=== PATIENT | female | born 1995 | race Hispanic/Latino ===

== ENCOUNTER 2019-05-14 09:37 | Day surgery (SDC) | payer BC, OTHER ==
[2019-05-14 10:14] VITALS: BMI 40.4
[2019-05-14 10:17] VITALS: BP 133/88; TEMP 97.9
[2019-05-14] MEDS ORDERED: hydrALAZINE 20 MG/ML VIAL SLOW IVP PRN (10:33)
[2019-05-14] MEDS ORDERED: Lactated Ringer's 1,000 ML IV SCH ×2 (10:45)
[2019-05-14 11:04] LABS: Amnisure Test No Membranes Rupture (No Rupture)
[2019-05-14 11:05] LABS: Amnisure Internal Control QC ACCEPTABLE (ACCEPTABLE)
[2019-05-14 11:15] LABS: #Lymphocytes 1.6 thou/uL (1.20-3.40); #Monocytes 0.5 thou/uL (0.11-0.59); #Neutrophils 5.5 thou/uL (1.40-6.50); %Basophils 0.2 % (0.0-1.0); %Eosinophils 0.6 % (0.0-10.0); %Lymphocytes 20.9 % (21.0-51.0); %Monocytes 6.5 % (0.0-10.0); %Neutrophils 71.8 % (42.0-75.0); Hemoglobin 10.6 g/dL (12.0-16.0); Mean Corpuscular HGB CONC 33.9 g/dL (32.0-36.0); Mean Corpuscular Hemoglobin 26.2 pg (27.0-31.0); Mean Corpuscular Volume 77.3 fL (78.0-98.0); Mean Platelet Volume 7.9 fL (7.4-10.4); Platelet Count 293 thou/uL (130-400); RBC Distribution Width 15.1 % (11.5-14.5); Red Blood Cell (RBC) Count 4.02 mill/uL (4.20-5.40); White Blood Cell (WBC) Count 7.6 thou/uL (4.8-10.8)
[2019-05-14 11:21] LABS: Bacteria/HPF 3+ HPF (None Seen); Bilirubin Negative (Negative); Blood, Urine Negative (Negative); Clarity Turbid (Clear); Glucose, Urine (Dipstick) Normal (Negative); Leukocyte Negative Leu/uL (Negative); Nitrite Negative (Negative); Protein, Urine (Dipstick) 20 mg/dL (Neg-Trace); RBC/HPF 0-3 HPF (0-3); Squamous Epithelial 21-50 HPF (0-3); Urobilinogen Normal mg/dL (Less than 2)
[2019-05-14 11:34] LABS: ALT (SGPT) 10 U/L (8-55); AST (SGOT) 11 U/L (5-34); Albumin 3.2 g/dL (3.5-5.0); Alkaline Phosphatase 190 U/L (40-110); Anion Gap 12 mmol/L (10-20); BUN (Urea Nitrogen) 4 mg/dL (7.0-18.7); Bilirubin, Total 0.4 mg/dL (0.2-1.2); Calc. Creatinine Clearance 212 mL/min (70-130); Calcium 8.4 mg/dL (7.8-10.44); Carbon Dioxide 20 mmol/L (22-29); Chloride 107 mmol/L (98-107); Estimated GFR-MDRD Greater than 90; Globulin 3.2 g/dL (2.4-3.5); Glucose 73 mg/dL (70-105); Protein, Total 6.4 g/dL (6.0-8.3); Sodium 135 mmol/L (136-145)
--- NOTE | 2019-05-14 12:29 | ULT ---
EXAM: US Biophysical Profile PROVIDED CLINICAL HISTORY: 35 week intrauterine . Decreased movement. COMPARISON: None FINDINGS: There is evidence of a single intrauterine gestation in cephalic presentation. Cardiac Doppler demons trates heart tones with a heart rate of 153 bpm. The placenta is located posteriorly and on the right. There is no evidence of placenta previa as the head is in the lower uterine s egment. However, a low-lying placenta is unable to be determined due to shadowing from the adjacent head and difficulty visualizing the leading edge of the placenta. There is a normal amount of amniotic fluid with an amniotic fluid index of 12.7 cm. A score of 2 was obtained each for tone, breathing, movements, an amniotic fluid vo lume. IMPRESSION: 1. The leading edge of the placenta in relation to the cervical os is unable to be visualized to eval uate for low-lying placenta. However, images do not demonstrate evidence of placenta previa as the head is in the lower uterine segment. 2. Single intrauterine gestation cephalic presentation with heart tones documented. 3. Amniotic fluid index of 12.7 cm. 4. A total biophysical profile score of 8 out of 8 is obtained.
--- NOTE | 2019-05-14 17:01 | SS ---
DATE OF ADMISSION: 05/14/2019 DATE OF DISCHARGE: 05/14/2019 REGULAR PHYSICIAN: Matty Moctezuma MD EVALUATING PHYSICIAN: Zhao Marinelli MD CHIEF COMPLAINT: Decreased movement, possible loss of fluid, nausea, and vomiting. HISTORY OF PRESENT ILLNESS: Ms. Shipman is a 23-year-old G2, P1, with an estimated date of confinement of 06/18/2019, who presents with multiple complaints today including decreased movement over the last 24 hours, possible leakage of fluid since this morning, lower abdominal discomfort and nausea and vomiting with three episodes of emesis since early this morning. She also states that she has had some blurry vision. Her care has been with Dr. Moctezuma and has been reportedly uncomplicated. PAST OBSTETRICAL HISTORY: Includes one section at term for what she describes as distress done by Dr. Moctezuma at [facility]. PAST MEDICAL HISTORY: None. PAST SURGICAL HISTORY: as above. CURRENT MEDICATIONS: She denies taking vitamins. ALLERGIES: NO KNOWN ALLERGIES. SOCIAL HISTORY: Denies tobacco, alcohol, or drug use. FAMILY HISTORY: Unremarkable. REVIEW OF SYSTEMS: Positive for nausea and vomiting. Positive for visual symptoms. PHYSICAL EXAMINATION: VITAL SIGNS: Blood pressure in triage shows all blood pressure is in the nonsevere range. Last blood pressure is 120/70s. GENERAL: She is pleasant and in no acute distress. ABDOMEN: Soft, nontender, and gravid. heart rate tracing is stable with spontaneous accelerations. Intermittent contractions are seen. The patient was given 1 L of IV fluid. LABORATORY DATA: Laboratories returned showing a white count of 7.6 and hemoglobin and hematocrit 10.6 and 31.0. Platelet count 293,000. Chemistry show a potassium of 4.0, a creatinine of 0.59. Glucose 73, total bilirubin 0.4, AST and ALT are 11 and 10. Urinalysis shows trace protein with negative ketones, negative blood, negative nitrites, and negative leukocyte esterase. AmniSure returns negative. Pelvic exam shows the cervix to be closed and there is no fluid seen on exam. Biophysical profile returns 8 with an NILO of 12. ASSESSMENT: 1. A 35 week intrauterine . 2. Previous section. 3. Reassuring testing today with normal laboratory work. PLAN: The patient will be dismissed to home with precautions. She is told to stay on Gatorade over the next 24 hours and to advance her diet slowly. She may also benefit from using [id number] Pepcid 1 tablet b.i.d. She voiced understanding of her discharge instructions and was sent home in good condition. Job ID: [id number]
== END 2019-05-14 12:35 | disposition home health service (06) ==
LOC: L&D/OP 09:37
PROVIDERS: ATTEND Obstetrics & Gynecology
DX: O36.8130 Decreased fetal movements, third trimester, not applicable or unspecified (principal); O21.2 Late vomiting of pregnancy; O99.89 Other specified diseases and conditions complicating pregnancy, childbirth and the puerperium; R10.30 Lower abdominal pain, unspecified; O34.219 Maternal care for unspecified type scar from previous cesarean delivery; Z3A.35 35 weeks gestation of pregnancy
CPT/HCPCS: 36415; 76819; 80053; 81003; 84112; 85025; 96360; 96361; 99285

== ENCOUNTER 2019-06-04 10:08 | Inpatient (IN) | payer BC, OTHER ==
[~2019-06-04 10:08] MED LIST: Ondansetron PF 4 MG/2 ML Vial IVP PRN; Promethazine HCl 25 MG/ML VIAL IM PRN; hydrALAZINE 20 MG/ML VIAL SLOW IVP PRN
--- NOTE | 2019-06-04 10:13 | PDOC.LDHP ---
Labor and Delivery H&P HPI: 23 y/o at 38 weeks for repeat , seen for CHTN, Obesity. Current gestational age (weeks): 38 Due date: 06/18/19 Grav: 2 Para: 1 Current complications: hypertension Abnormal US findings: No Current medications: pre-jae vitamins Previous surgical history: low tranverse CS Allergies/Adverse Reactions: Allergies Allergy/AdvReac Type Severity Reaction Status Date / Time No Known Allergies Allergy Verified 05/14/19 10:16 Social history: none - Physical Exam Vital signs reviewed and normal: yes General: NAD Heart: RRR Lungs: CTAB Abdomen: gravid Extremeties: no edema FHT: category 1 - Assessment L&D Assessment: scheduled repeat section - Plan Plan: admit to L&D, to OR for section
[2019-06-04] MEDS ORDERED: Lactated Ringer's 1,000 ML IV SCH (10:15)
[2019-06-04] MEDS ORDERED: CEFAZOLIN 2 GM in Premix Bag 1 BAG IVPB SCH (10:15)
[2019-06-04] MEDS ORDERED: Bicitra 30 ML UDCUP PO SCH (10:15)
[2019-06-04 10:54] VITALS: BMI 41.2
[2019-06-04] MEDS ORDERED: Ondansetron PF 4 MG/2 ML Vial IVP PRN ×2 (11:35→17:25)
[2019-06-04] MEDS ORDERED: L&D-Morphine 4 MG/ML VIAL SLOW IVP PRN (11:35)
[2019-06-04] MEDS ORDERED: Ketorolac Tromethamine 30 MG/ML VIAL IVP PRN (11:35)
[2019-06-04] MEDS ORDERED: Promethazine HCl 25 MG SUPP PR PRN (11:35)
[2019-06-04] MEDS ORDERED: Ondansetron HCl/PF 4 MG/2 ML Vial IVP PRN (11:35)
[2019-06-04] MEDS ORDERED: Promethazine HCl 25 MG/ML VIAL IM PRN ×2 (11:35→17:25)
[2019-06-04] MEDS ORDERED: Naloxone HCl 0.4 mg/ml Vial IV PRN (11:35)
[2019-06-04] MEDS ORDERED: diphenhydrAMINE 50 MG/ML VIAL IVP PRN (11:35)
[2019-06-04] MEDS ORDERED: Meperidine HCl/PF 25 MG/ML VIAL SLOW IVP PRN (11:35)
[2019-06-04] MEDS ORDERED: Naloxone HCl 0.4 mg/ml Vial IVP PRN ×2 (11:35)
[2019-06-04] MEDS ORDERED: HYDROmorphone 2 MG/ML VIAL SLOW IVP PRN (11:35)
[2019-06-04] MEDS ORDERED: MORPHINE 5 MG/10 ML PF VIAL ONE (11:37)
[2019-06-04] MEDS ORDERED: ePHEDrine/0.9% NaCl/PF SYRINGE 50 mg/10 ml ONE (11:38)
[2019-06-04] MEDS ORDERED: Oxytocin 10 UNITS/ML VIAL ONE (11:38)
[2019-06-04] MEDS ORDERED: Ketorolac Tromethamine 30 MG/ML VIAL IVP SCH (11:45)
[2019-06-04] MEDS ORDERED: Communication Order-Pharmacy FS SCH (11:45)
[2019-06-04 11:53] LABS: Syphilis Antibody Nonreactive (Nonreactive); Syphilis Antibody Index 0.06 S/CO (<1.00 Non-Reactive)
[2019-06-04 12:07] LABS: HBSAg Index 0.19 S/CO (0-0.99); Hep B Surf Ag Non-Reactive S/CO (NonReactive)
[2019-06-04 12:25] LABS: Hemoglobin 10.3 g/dL (12.0-16.0); Mean Corpuscular HGB CONC 32.4 g/dL (32.0-36.0); Mean Corpuscular Hemoglobin 24.3 pg (27.0-31.0); Mean Corpuscular Volume 74.9 fL (78.0-98.0); Platelet Count 302 thou/uL (130-400); RBC Distribution Width 16.6 % (11.5-14.5); Red Blood Cell (RBC) Count 4.25 mill/uL (4.20-5.40); White Blood Cell (WBC) Count 7.7 thou/uL (4.8-10.8)
[2019-06-04] MEDS ORDERED: PHENYLEPHRINE-NS 100 MCG/ML 10 ML SYRINGE ONE (13:15)
[2019-06-04] MEDS ORDERED: Lanolin Ointment 7 GM TUBE TOP PRN (17:25)
[2019-06-04] MEDS ORDERED: NS / Oxytocin 40 units/1000ml 1,000 ML IV SCH (17:25)
[2019-06-04] MEDS ORDERED: diphenhydrAMINE 25 MG CAP PO PRN (17:25)
[2019-06-04] MEDS ORDERED: Bisacodyl 10 MG SUPP PR PRN (17:25)
[2019-06-04] MEDS ORDERED: Adacel (T-DAP) 0.5 ML SYRINGE IM ONE (17:25)
[2019-06-04] MEDS ORDERED: Varicella virus, LIVE 0.5 ML VIAL SC ONE (17:25)
[2019-06-04] MEDS ORDERED: hydrALAZINE 20 MG/ML VIAL SLOW IVP PRN (17:25)
[2019-06-04] MEDS ORDERED: Simethicone Chewable 80 MG TAB PO PRN (17:25)
[2019-06-04] MEDS ORDERED: Measles/Mumps/Rubella 10 MCG/0.5 ML VIAL SC ONE (17:25)
[2019-06-04] MEDS ORDERED: Misoprostol 200 MCG TAB PR PRN (17:25)
[2019-06-04] MEDS ORDERED: Zolpidem Tartrate 5 MG TAB PO PRN (17:25)
[2019-06-04] MEDS ORDERED: HYDROcodone/Acetaminophen 5/325 mg Tablet PO PRN (18:42)
[2019-06-04] MEDS ORDERED: Acetaminophen 500 MG TAB PO SCH (19:30)
[2019-06-04] MEDS: Docusate Calcium (SURFAK) 240 MG CAP PO SCH (21:27)
[2019-06-04] MEDS: Ibuprofen 800 MG TAB PO SCH (21:27)
[2019-06-05] MEDS ORDERED: Ketorolac Tromethamine 30 MG/ML VIAL ONE (05:07)
[2019-06-05] MEDS: Ibuprofen 800 MG TAB PO SCH ×3 (12:41→22:17)
[2019-06-05] MEDS: Docusate Calcium (SURFAK) 240 MG CAP PO SCH ×2 (12:42→22:17)
[2019-06-05] MEDS: Prenatal Vitamin 1 TAB PO SCH (12:42)
[2019-06-05 14:42] LABS: Hemoglobin 8.4 g/dL (12.0-16.0); Mean Corpuscular Hemoglobin 24.1 pg (27.0-31.0); Mean Corpuscular Volume 75.5 fL (78.0-98.0); Mean Platelet Volume 8.3 fL (7.4-10.4); Platelet Count 223 thou/uL (130-400); RBC Distribution Width 16.7 % (11.5-14.5); Red Blood Cell (RBC) Count 3.49 mill/uL (4.20-5.40)
[2019-06-05] MEDS: HYDROcodone/Acetaminophen 5/325 mg Tablet PO PRN (14:58)
[2019-06-06] MEDS: Ibuprofen 800 MG TAB PO SCH ×3 (05:23→21:54)
--- NOTE | 2019-06-06 09:35 | PDOC.PP ---
Post Progress Note Post Day #: 1 PO intake tolerated: yes Flatus: yes Ambulation: yes Vital Signs (12 hours) Temp Pulse Resp BP Pulse Ox 06/06/19 08:33 98.0 F 91 20 109/65 95 06/06/19 05:23 98.0 F 72 18 109/65 06/06/19 00:50 99.4 F 86 18 126/77 06/05/19 21:45 98 Weight Weight 204 lb - Physical Examination General: NAD Cardiovascular: no m/r/g, RRR Respiratory: clear to auscultation bilaterally Abdominal: + bowel sounds, lochia Extremities: negative homans (B) Skin: CS incision dry & intact, no rash Neurological: no gross focal deficits Psychiatric: A&Ox3, normal affect Result Diagrams: 06/05/19 10:11 Additional Labs: Post Labs Blood Type A POSITIVE 06/04/19 10:47 Hep Bs Antigen Non-Reactive S/CO (NonReactive) 06/04/19 10:47
--- NOTE | 2019-06-06 09:36 | PDOC.PP ---
Post Progress Note Post Day #: 2 PO intake tolerated: yes Flatus: yes Ambulation: yes Vital Signs (12 hours) Temp Pulse Resp BP Pulse Ox 06/06/19 08:33 98.0 F 91 20 109/65 95 06/06/19 05:23 98.0 F 72 18 109/65 06/06/19 00:50 99.4 F 86 18 126/77 06/05/19 21:45 98 Weight Weight 204 lb - Physical Examination General: NAD Cardiovascular: no m/r/g, RRR Respiratory: clear to auscultation bilaterally, non-labored breathing Abdominal: + bowel sounds, lochia, no distention Extremities: negative homans (B) Skin: CS incision dry & intact, no rash Neurological: no gross focal deficits Psychiatric: A&Ox3, normal affect Result Diagrams: 06/05/19 10:11 Additional Labs: Post Labs Blood Type A POSITIVE 06/04/19 10:47 Hep Bs Antigen Non-Reactive S/CO (NonReactive) 06/04/19 10:47
[2019-06-06] MEDS: Docusate Calcium (SURFAK) 240 MG CAP PO SCH ×2 (10:51→21:54)
[2019-06-06] MEDS: Prenatal Vitamin 1 TAB PO SCH (10:51)
[2019-06-06] MEDS: HYDROcodone/Acetaminophen 5/325 mg Tablet PO PRN (17:12)
[2019-06-07] MEDS: Ibuprofen 800 MG TAB PO SCH ×2 (05:01→13:06)
[2019-06-07 08:40] VITALS: BP 134/84; TEMP 97.9
[2019-06-07] MEDS: Prenatal Vitamin 1 TAB PO SCH (08:52)
[2019-06-07] MEDS: Docusate Calcium (SURFAK) 240 MG CAP PO SCH (08:52)
--- NOTE | 2019-06-07 11:47 | PDOC.PP ---
Post Progress Note Post Day #: 3 PO intake tolerated: yes Flatus: yes Ambulation: yes Vital Signs (12 hours) Temp Pulse Resp BP Pulse Ox 06/07/19 08:39 97.9 F 77 20 134/84 97 06/07/19 05:01 98.0 F 70 18 115/71 Weight Weight 204 lb - Physical Examination General: NAD Cardiovascular: no m/r/g Respiratory: clear to auscultation bilaterally, non-labored breathing Abdominal: + bowel sounds, lochia, no distention Extremities: negative homans (B) Skin: CS incision dry & intact, no rash Neurological: no gross focal deficits Psychiatric: A&Ox3, normal affect Result Diagrams: 06/05/19 10:11 Additional Labs: Post Labs Blood Type A POSITIVE 06/04/19 10:47 Hep Bs Antigen Non-Reactive S/CO (NonReactive) 06/04/19 10:47
[2019-06-07] MEDS: FLU VACC QS2019-20(6MOS UP)/PF 60 MCG/0.5 ML SYRINGE IM ONE ×2 (13:03→13:04)
--- NOTE | 2019-06-07 16:22 | OP ---
DATE OF PROCEDURE: 06/04/2019 TIME OF SERVICE: 12:55 central standard time. PREOPERATIVE DIAGNOSES: Intrauterine at 38 weeks and 0 days with a diagnosis of chronic hypertension as well as rapid weight gain in the last 7 days, worrisome for the development of preeclampsia. POSTOPERATIVE DIAGNOSIS: Intrauterine at 38 weeks and 0 days with a diagnosis of chronic hypertension as well as rapid weight gain in the last 7 days, worrisome for the development of preeclampsia. PROCEDURE PERFORMED: Repeat low transverse section. FINDINGS: Viable female infant, weighing 3670 g or 8 pounds 1 ounce, Apgars 8 and 9. QUANTITATIVE BLOOD LOSS: 570 mL. COMPLICATIONS: None. DETAILS OF THE PROCEDURE: The patient was consented and taken back to the operating room where spinal anesthesia was found to be adequate. She was then prepped and draped in the normal sterile fashion. A timeout was performed by the entire operative team. The incision was then marked with a marking pen tested using sharp pickups. An incision was then made with a scalpel. The incision was carried through the adipose tissue down to the underlying rectus fascia using both sharp dissection as well as cautery. Once the fascia was identified, it was incised in the midline and then the fascial incision was carried through in both lateral directions using sharp as well as cautery dissection techniques. Next, the superior aspect of the rectus fascia was grasped with 2 Cheri clamps, which was tented up and the rectus muscles were dissected off using blunt dissection as well as cautery dissection. Similarly, the inferior aspect of the fascial incision was grasped with 2 Cheri clamps, tented up and the rectus muscles were dissected off bluntly as well as sharply. Next, the rectus muscles were in the midline and the peritoneum identified. The peritoneum was then carefully grasped with 2 hemostats and entered sharply. The peritoneal incision was extended superiorly and inferiorly and bladder blade was placed in the lower abdomen. At this point, the uterus was identified and the bladder flap was then developed using pickups with teeth as well as Metzenbaum scissors in both lateral directions. The bladder flap was then dissected downwards using the thermit welding machine operator's finger as well as Metzenbaum scissors. The bladder blade was replaced. The lower uterine segment was then identified and entered sharply using a clean scalpel. The uterine incision was then dissected downwards until thin layer of muscle remained and this was entered bluntly using a hemostat to avoid any injury to the baby. The uterine incision was then stretched using two fingers in both lateral directions. An amniotomy was performed artificially using a hemostat and the baby was delivered using fundal pressure in a gentle fashion. Once out, the baby's mouth and nose were bulb suctioned, cord clamped and cut, and the baby was handed to waiting attendants. Next, the uterus was exteriorized, cleared of all clots and debris and the uterine incision was repaired with #1 Monocryl in a running locking fashion. A 2nd suture of the same type was used to obtain complete hemostasis at the uterine incision. The bladder flap was reapproximated using 3-0 Monocryl. Next, patient's left and right adnexa were inspected and appeared to be within normal limits. The posterior cul-de-sac was blotted dry and hemostasis assured. One more look at the uterine incision demonstrated hemostasis. Next, the uterus was replaced back within the abdomen. The peritoneum was reapproximated using 2-0 Monocryl without difficulty. The rectus muscles were then allowed to come back together and 0 chromic was used to aid in reapproximation of the muscle as necessary. The rectus fascia was then reapproximated in a running fashion using 0 Vicryl suture. The adipose tissue was then examined and appeared to be well approximated without any obvious separations. Finally, the skin was reapproximated with 3-0 Monocryl on a Topher needle without difficulty and Dermabond adhesive was applied to the skin. Once the glue was dry, the drapes were removed and the patient was transferred to an ambulatory bed where she was taken to recovery awake and in stable condition. Sponge, lap, and needle counts were correct x3. Job ID: [id number]
== END 2019-06-07 14:14 | disposition home or self-care (01) | DRG 787 ==
LOC: L&D 10:08 → 3SW 17:47
PROVIDERS: ADMIT Obstetrics & Gynecology; ATTEND Obstetrics & Gynecology
PROC: 10D00Z1 Extraction of Products of Conception, Low, Open Approach (ICD-10-PCS; principal; 2019-06-04)
PROC: 3E02340 Introduction of Influenza Vaccine into Muscle, Percutaneous Approach (ICD-10-PCS; 2019-06-07)
DX: O34.211 Maternal care for low transverse scar from previous cesarean delivery (principal); Z3A.38 38 weeks gestation of pregnancy; Z37.0 Single live birth; Z23 Encounter for immunization; O10.92 Unspecified pre-existing hypertension complicating childbirth; O99.214 Obesity complicating childbirth; E66.9 Obesity, unspecified
CPT/HCPCS: 36415; 51702; 85027; 86780; 86850; 86900; 86901; 87340; 90471; 90686; G0008; J0690; J1885; J2274; J2405; J2590